=== PATIENT | male | born 1995 | race Caucasian/White ===

== ENCOUNTER 2016-07-12 18:22 | Emergency (ER) | payer SELFPAY ==
[2016-07-12 18:40] VITALS: BP 151/98
== END 2016-07-13 00:40 | disposition left against medical advice (07) ==
LOC: ER 18:22
DX: Z53.21 Procedure and treatment not carried out due to patient leaving prior to being seen by health care provider (principal)

== ENCOUNTER 2016-10-09 15:22 | Emergency (ER) | payer SELFPAY ==
[2016-10-09 15:29] VITALS: BP 152/94
[2016-10-09] MEDS ORDERED: AZITHROMYCIN 250 MG TABLET PO ONE (15:44)
[2016-10-09] MEDS ORDERED: AZITHROMYCIN 250 MG TABLET ONE (15:53)
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
--- OUTSIDE RECORDS SUMMARY | 2016-10-09 16:01 | XMS REPORT | Continuity of Care Document ---
:1995 Author Organization [facility] [place] [address] Care Team Providers Name Role Phone Sammy Granados Primary Care Provider [phone] Source Comments This disclosure is being made pursuant to the vIPtela program and maynot contain all information available regarding this patient.[facility] Active Allergies and Adverse Reactions No Known Allergies Current Medications Be aware that medications may not be up to date as of this document. Alwaysverify current medications with the patient. No known medications Active Problems Problem Noted Date Flexor tendon laceration of finger with open wound 11/16/2015 Digital nerve laceration, finger 11/16/2015 Most Recent Encounters Date Type Specialty Providers Description 09/18/2016 Data Import Social History Tobacco Use Types Packs/Day Years Used Date Current Every Day Smoker Smokeless Tobacco: Current User Tobacco Cessation:Counseling Given: Yes Comments: Last Filed Vital Signs Vital Sign Reading Time Taken Blood Pressure 132/88 11/16/2015 8:38 AM CDT Pulse 80 11/16/2015 8:38 AM CDT Temperature - - Respiratory Rate 16 11/16/2015 8:38 AM CDT Height 1.829 m (6') 11/16/2015 8:38 AM CDT Weight 69.854 kg (154 lb) 11/16/2015 8:38 AM CDT Body Mass Index 20.88 11/16/2015 8:38 AM CDT Oxygen Saturation - - Plan of Care Date Type Specialty Providers Description 11/18/2016 Appointment Plastic Surgery Lg Enamorado MD [address] [place] [phone] (Fax) Health Maintenance Due Date Last Done Comments HPV Vaccine (9-26YO) (1 of 3 - Male 3 Dose Series) 2007 Meningococcal Vaccine (1 of 1) 2012 Pneumococcal Medium Risk 19-64 yo (1 of 1 - PPSV23) 2015 Tetanus/Pertussis (1 - Tdap) 2015 Influenza Immunization (#1) 2016 Results from Last 3 Months Not on file
--- OUTSIDE RECORDS SUMMARY | 2016-10-09 16:02 | XMS REPORT | Continuity of Care Document ---
:1995 Author Organization [facility] ([facility]) Address [address] [place] [address] Phone [phone] Care Team Providers Name Role Phone Qasim Hill Primary Care Provider [phone] Source Comments This disclosure is being made pursuant to the Care Everywhere program, applicable federal and state laws, and may not contain all informaitonavailable regarding this patient.[facility] ([facility]) Active Allergies and Adverse Reactions No Known Allergies Current Medications Prescription Sig. Disp. Refills Start Date End Date Status CETIRIZINE Take by mouth as Active HCL/PSEUDOEPHEDRINE needed. (ZYRTEC-D PO) Active Problems Problem Noted Date Anxiousness 01/13/2012 Smoker 01/02/2012 Resolved Problems Problem Noted Date Resolved Date Choking sensation 01/02/2012 01/13/2012 Palpitation 01/02/2012 01/13/2012 Increased sleeping 01/02/2012 01/13/2012 Immunizations Name Dates Previously Given Next Due DTP 1996,1996,1996 DTaP, unspecified 10/05/2001,08/11/1997 Hepatitis B, unspecified 1996,1996,1996 Hib, unspecified 08/11/1997,1996,1996,1996 MMR 10/05/2001,08/11/1997 Polio/IPV 10/05/2001 Polio/OPV 08/11/1997,1996,1996,1996 Varicella 07/21/1997 Social History Tobacco Use Types Packs/Day Years Used Date Current Every Day Smoker Cigarettes 0.25 Smokeless Tobacco: Current User Chew Tobacco Cessation:Ready to Quit: No; Counseling Given: Yes Comments: Last Filed Vital Signs Vital Sign Reading Time Taken Blood Pressure 126/81 01/07/2012 1:33 PM CDT Pulse 54 01/07/2012 1:33 PM CDT Temperature 36.1 C (97 F) 01/07/2012 1:33 PM CDT Respiratory Rate 16 01/07/2012 1:33 PM CDT Height 1.791 m (5' 10.51") 01/07/2012 1:33 PM CDT Weight 63.7 kg (140 lb 6.9 oz) 01/07/2012 1:33 PM CDT Body Mass Index 19.86 01/07/2012 1:33 PM CDT Oxygen Saturation 100% 01/02/2012 2:14 PM CDT Plan of Care Health Maintenance Due Date Last Done Comments Varicella Vaccine (2 of 2 - 2 11/02/2001 07/21/1997 Dose Childhood Series) HPV Vaccine (1 of 3 - Male 3 2007 Dose Series) Tdap Vaccine 2007 Meningococcal Vaccine (1 of 2012 1) Lipid Disorder Screening 2014 Td Vaccine 2014 10/05/2001, Additional history exists 08/11/1997, 1996 Pneumococcal Vaccine (1 of 1 2015 - PPSV23) Influenza Vaccine: Seasonal 01/21/2016 (#1) Hepatitis B Vaccine Completed 1996, 1996, 1996 MMR Vaccine Completed 10/05/2001, 08/11/1997 Results from Last 3 Months Not on file
[2016-10-09 16:43] LABS: Urine Bilirubin Negative (NEGATIVE); Urine Blood Negative /ul (NEGATIVE); Urine Ketone Negative (NEGATIVE); Urine Nitrite Negative (NEGATIVE); Urine Protein Negative (NEGATIVE); Urine Urobilinogen Normal (NORMAL)
[2016-10-09 16:55] LABS: Urine Appearance Cloudy; Urine Bacteria 2+; Urine Color Yellow; Urine RBC None Seen /hpf (0-5)
[2016-10-09 16:56] LABS: Urine Amorphous Sediment Many - 3+ (NONE-FEW); Urine Waxy Cast TRACE /LPF; Urine Yeast Few - 1+
== END 2016-10-09 16:19 | disposition home or self-care (01) ==
LOC: ER 15:22
DX: A64 Unspecified sexually transmitted disease (principal)